=== PATIENT | female | born 1945 | race Caucasian/White ===

== ENCOUNTER 2017-10-21 13:39 | Inpatient (IN) | payer MEDICARE, OTHER ==
[2017-10-21] MEDS: SODIUM CHLORIDE 0.9% 1L BAG IV* (19:18)
[2017-10-21] MEDS: ONDANSETRON 4 MG INJ IV (19:24)
[2017-10-21] MEDS: IBUPROFEN 800 MG TAB PO (19:24)
[2017-10-21] MEDS: ACETAMINOPHEN 325 MG TAB PO (19:25)
[2017-10-21 19:27] LABS: ABNORMAL IP MESSAGE 1; MEAN CORPUSCULAR HEMOGLOBIN 22.9 pg (29.0-33.0); MEAN CORPUSCULAR HGB CONC 30.5 g/dl (32.0-37.0); MEAN CORPUSCULAR VOLUME 75.1 fl (82.0-101.0); MEAN PLATELET VOLUME 9.6 fl (7.4-10.4); PLATELET COUNT 221 10^3/UL (140-415); RED BLOOD COUNT 2.93 10^6/ul (4.20-5.40); RED CELL DISTRIBUTION WIDTH 17.7 % (11.5-14.5)
[2017-10-21 19:27] LABS: WHITE BLOOD COUNT 17.1 10^3/ul (4.8-10.8)
[2017-10-21 19:31] LABS: ADD MAN DIFF? YES; POSITIVE DIFF @See below
[2017-10-21 19:32] LABS: ADD UMIC YES; UR ASCORBIC ACID NEGATIVE (NEGATIVE); UR BACTERIA FEW /HPF (NONE SEEN); UR BILIRUBIN (Dip) NEGATIVE (NEGATIVE); UR BLOOD (Dip) 1+ mg/dL (NEGATIVE); UR CLARITY SLIGHTLY CLOUDY (CLEAR); UR COLOR YELLOW (YELLOW); UR GLUCOSE (Dip) NEGATIVE (NEGATIVE); UR KETONES (Dip) NEGATIVE (NEGATIVE); UR LEUKOCYTE ESTERASE (Dip) TRACE Leu/ul (NEGATIVE); UR NITRITE (Dip) POSITIVE (NEGATIVE); UR RBC 1 /HPF (0-5); UR SPECIFIC GRAVITY (Dip) 1.014 (1.003-1.030); UR SQUAMOUS EPITHELIAL CELL FEW /HPF (FEW); UR TOTAL PROTEIN (Dip) 2+ mg/dl (NEGATIVE); UR UROBILINOGEN (Dip) NEGATIVE (NEGATIVE); UR WBC 10 /HPF (0-5)
[2017-10-21 19:34] LABS: HEMOGLOBIN 6.7 g/dl (12.0-16.0)
[2017-10-21 19:45] LABS: ALANINE AMINOTRANSFERASE 26 IU/L (13-69); ALBUMIN 4.4 g/dl (3.3-4.9); ALBUMIN/GLOBULIN RATIO 1.12; ALKALINE PHOSPHATASE 103 IU/L (42-121); AMYLASE 88 U/L (11-123); ANION GAP 18 (8-16); ASPARTATE AMINO TRANSFERASE 36 IU/L (15-46); BLOOD UREA NITROGEN 17 mg/dl (7-20); CALCIUM 8.9 mg/dl (8.4-10.2); CARBON DIOXIDE 24 mmol/L (21-31); CHLORIDE 97 mmol/L (97-110); CREATININE 1.16 mg/dl (0.44-1.00); GLUCOSE 192 mg/dl (70-220); LIPASE 66 U/L (23-300); POTASSIUM 3.9 mmol/L (3.5-5.1); SODIUM 135 mmol/L (135-144); TOTAL PROTEIN 8.3 g/dl (6.1-8.1)
[2017-10-21 19:53] LABS: LACTIC ACID 2.4 mmol/L (0.5-2.0)
[2017-10-21 19:54] LABS: INR 1.02; PROTIME 13.5 Sec (11.9-14.9); PT RATIO 1.1
[2017-10-21 19:55] LABS: PARTIAL THROMBOPLASTIN TIME 31.7 Sec (25.0-35.0); TROPONIN-I 0.015 ng/ml (0.00-0.12)
[2017-10-21 20:03] LABS: ANISOCYTOSIS 1+ (0-0); HYPOCHROMASIA 1+ (0-0); LYMPHOCYTES #M 1.8 10^3/ul (0.8-2.9); LYMPHOCYTES % (M) 11 % (15-51); MICROCYTOSIS 1+ (0-0); MONOCYTE #M 0.3 10^3/ul (0.3-0.9); MONOCYTES % (M) 2 % (0-11); PLATELET MORPHOLOGY COMMENT @See below; SEGMENTED NEUTROPHILS (M) % 87 % (39-77); SMUDGE%M 2 % (0-0)
[2017-10-21] MEDS: CEFTRIAXONE 1 GM/50 ML (PMX) 50 ML IVPB (20:11)
[2017-10-21 20:22] LABS: HEMATOCRIT 19.5 % (37.0-47.0)
[2017-10-21 20:32] LABS: HEMOGLOBIN 5.9 g/dl (12.0-16.0)
[2017-10-21 20:33] LABS: PATH REVIEW? YES
[2017-10-21 20:42] LABS: LACTATE DEHYDROGENASE 406 IU/L (313-618)
[2017-10-21 20:49] LABS: IRON < 10 ug/dl (35-150)
[2017-10-21 20:51] LABS: TOTAL IRON BINDING CAPACITY 401 ug/dl (241-421)
[2017-10-21 21:24] LABS: IMMEDIATE SPIN CROSSMATCH 1 3
[2017-10-21] MEDS ORDERED: ONDANSETRON 4 MG INJ IV (21:30)
[2017-10-21] MEDS ORDERED: ACETAMINOPHEN 325 MG TAB PO (21:30)
[2017-10-22] MEDS ORDERED: morphine 2 MG INJ IV (05:00)
[2017-10-22] MEDS ORDERED: ACETAMINOPHEN 325 MG TAB PO (05:00)
[2017-10-22] MEDS ORDERED: ALBUTEROL/IPRATROPIUM (NEB) 3 ML AMP HHN (05:00)
[2017-10-22] MEDS ORDERED: ONDANSETRON 4 MG INJ IV (05:00)
[2017-10-22] MEDS ORDERED: NACL 0.9% 3 ML SYG IV (05:00)
[2017-10-22] MEDS ORDERED: METHOTREXATE 2.5 MG TAB PO (05:00)
[2017-10-22] MEDS: LEVOTHYROXINE 25 MCG TAB PO (06:45)
[2017-10-22] MEDS: PANTOPRAZOLE 40 MG INJ IV ×2 (06:45→18:49)
[2017-10-22 09:11] LABS: ADD MAN DIFF? NO
[2017-10-22 09:32] LABS: HEMOGLOBIN A1C 6.3 % (0-5.9)
[2017-10-22] MEDS: BENAZEPRIL 40 MG TAB PO (09:32)
[2017-10-22] MEDS: FOLIC ACID 1 MG TAB PO (09:32)
[2017-10-22] MEDS: CEFTRIAXONE 1 GM/50 ML (PMX) 50 ML IVPB ×2 (09:33→21:08)
[2017-10-22] MEDS: metFORMIN 500 MG TAB PO ×2 (09:33→18:49)
[2017-10-22] MEDS: AMLODIPINE 10 MG TAB PO (09:33)
[2017-10-22 09:41] LABS: WHITE BLOOD COUNT 12.6 10^3/ul (4.8-10.8)
[2017-10-22 09:41] LABS: BASOPHILS % 0.2 % (0.0-2.0); EOSINOPHILS % 0.1 % (0.0-7.0); HEMATOCRIT 23.6 % (37.0-47.0); HEMOGLOBIN 7.3 g/dl (12.0-16.0); LYMPHOCYTES # 1.7 10^3/ul (0.8-2.9); LYMPHOCYTES % 13.3 % (15.0-51.0); MEAN CORPUSCULAR HEMOGLOBIN 23.6 pg (29.0-33.0); MEAN CORPUSCULAR HGB CONC 30.9 g/dl (32.0-37.0); MEAN CORPUSCULAR VOLUME 76.4 fl (82.0-101.0); MONOCYTE # 0.8 10^3/ul (0.3-0.9); MONOCYTES % 6.5 % (0.0-11.0); NEUTROPHILS % 79.4 % (39.0-77.0); PLATELET COUNT 264 10^3/UL (140-415); RED BLOOD COUNT 3.09 10^6/ul (4.20-5.40); RED CELL DISTRIBUTION WIDTH 17.5 % (11.5-14.5)
[2017-10-22 09:49] LABS: ALANINE AMINOTRANSFERASE 23 IU/L (13-69); ALBUMIN 3.3 g/dl (3.3-4.9); ALBUMIN/GLOBULIN RATIO 0.89; ALKALINE PHOSPHATASE 83 IU/L (42-121); ANION GAP 13 (8-16); ASPARTATE AMINO TRANSFERASE 34 IU/L (15-46); BLOOD UREA NITROGEN 19 mg/dl (7-20); CALCIUM 8.7 mg/dl (8.4-10.2); CARBON DIOXIDE 24 mmol/L (21-31); CHLORIDE 107 mmol/L (97-110); CREATININE 0.95 mg/dl (0.44-1.00); GLUCOSE 98 mg/dl (70-220); POTASSIUM 4.1 mmol/L (3.5-5.1); SODIUM 140 mmol/L (135-144)
[2017-10-22] MEDS: BARIUM SULF 2% 450 ML BTL (BERRY SMOOTHIE) PO (10:38)
[2017-10-22] MEDS: SOD FERRIC GLUC COMPLX 125 MG in SOD CHLORIDE 0.9% 100 ML IVPB (10:49)
[2017-10-22 12:45] LABS: LACTIC ACID 1.1 mmol/L (0.5-2.0)
[2017-10-22 17:58] LABS: LACTIC ACID 0.8 mmol/L (0.5-2.0)
[2017-10-22] MEDS: ATORVASTATIN 20 MG TAB PO (21:07)
[2017-10-22 21:08] LABS: OCCULT BLOOD STOOL NEGATIVE (NEGATIVE)
[2017-10-23] MEDS: LEVOTHYROXINE 25 MCG TAB PO (05:44)
[2017-10-23] MEDS: PANTOPRAZOLE 40 MG INJ IV ×2 (05:44→18:43)
[2017-10-23] MEDS: metFORMIN 500 MG TAB PO (08:15)
[2017-10-23] MEDS: CEFTRIAXONE 1 GM/50 ML (PMX) 50 ML IVPB ×2 (08:15→21:34)
[2017-10-23] MEDS: FOLIC ACID 1 MG TAB PO (08:15)
[2017-10-23] MEDS: AMLODIPINE 10 MG TAB PO (08:18)
[2017-10-23] MEDS: BENAZEPRIL 40 MG TAB PO (08:18)
[2017-10-23 08:44] LABS: ADD MAN DIFF? NO
[2017-10-23 08:50] LABS: BASOPHILS % 0.4 % (0.0-2.0); EOSINOPHILS # 0.1 10^3/ul (0.0-0.5); EOSINOPHILS % 0.7 % (0.0-7.0); HEMATOCRIT 23.5 % (37.0-47.0); HEMOGLOBIN 7.2 g/dl (12.0-16.0); LYMPHOCYTES # 2.1 10^3/ul (0.8-2.9); LYMPHOCYTES % 24.7 % (15.0-51.0); MEAN CORPUSCULAR HEMOGLOBIN 23.3 pg (29.0-33.0); MEAN CORPUSCULAR HGB CONC 30.6 g/dl (32.0-37.0); MEAN CORPUSCULAR VOLUME 76.1 fl (82.0-101.0); MONOCYTES % 11.6 % (0.0-11.0); NEUTROPHIL # 5.2 10^3/ul (1.6-7.5); NEUTROPHILS % 61.8 % (39.0-77.0); PLATELET COUNT 262 10^3/UL (140-415); RED BLOOD COUNT 3.09 10^6/ul (4.20-5.40); RED CELL DISTRIBUTION WIDTH 17.9 % (11.5-14.5)
[2017-10-23 08:50] LABS: WHITE BLOOD COUNT 8.4 10^3/ul (4.8-10.8)
[2017-10-23 09:32] LABS: ANION GAP 14 (8-16); BLOOD UREA NITROGEN 16 mg/dl (7-20); CALCIUM 8.6 mg/dl (8.4-10.2); CARBON DIOXIDE 24 mmol/L (21-31); CHLORIDE 106 mmol/L (97-110); GLUCOSE 84 mg/dl (70-220); MAGNESIUM 2.1 mg/dl (1.7-2.5); PHOSPHORUS 3.6 mg/dl (2.5-4.9); POTASSIUM 4.6 mmol/L (3.5-5.1); SODIUM 139 mmol/L (135-144)
[2017-10-23] MEDS: SOD CHLORIDE 0.9% 100 ML (10:39)
[2017-10-23] MEDS: IOHEXOL 300MG/ML 150 ML BTL (10:39)
[2017-10-23] MEDS: SOD FERRIC GLUC COMPLX 125 MG in SOD CHLORIDE 0.9% 100 ML IVPB (11:25)
[2017-10-23 11:56] LABS: TRANSFERRIN 343 mg/dL (188-341)
[2017-10-23] MEDS: BISACODYL (EC) 5 MG TAB PO (16:14)
[2017-10-23] MEDS: MAGNESIUM CITRATE 300 ML BTL PO (16:14)
[2017-10-23] MEDS: POLYETHYLENE GLYCOL 3350 119 GM POWDER PO (18:43)
[2017-10-23] MEDS: ATORVASTATIN 20 MG TAB PO (21:33)
[2017-10-24] MEDS: LEVOTHYROXINE 25 MCG TAB PO (06:36)
[2017-10-24] MEDS: PANTOPRAZOLE 40 MG INJ IV ×2 (06:36→18:37)
[2017-10-24] MEDS: POLYETHYLENE GLYCOL 3350 119 GM POWDER PO (06:36)
[2017-10-24 07:22] LABS: ADD MAN DIFF? NO
[2017-10-24 07:30] LABS: WHITE BLOOD COUNT 6.7 10^3/ul (4.8-10.8)
[2017-10-24 07:30] LABS: BASOPHILS % 0.4 % (0.0-2.0); EOSINOPHILS # 0.1 10^3/ul (0.0-0.5); EOSINOPHILS % 0.9 % (0.0-7.0); HEMATOCRIT 26.6 % (37.0-47.0); LYMPHOCYTES # 2.5 10^3/ul (0.8-2.9); LYMPHOCYTES % 36.6 % (15.0-51.0); MEAN CORPUSCULAR HEMOGLOBIN 23.1 pg (29.0-33.0); MEAN CORPUSCULAR HGB CONC 30.1 g/dl (32.0-37.0); MEAN CORPUSCULAR VOLUME 76.7 fl (82.0-101.0); MEAN PLATELET VOLUME 8.9 fl (7.4-10.4); MONOCYTE # 0.9 10^3/ul (0.3-0.9); MONOCYTES % 12.6 % (0.0-11.0); NEUTROPHIL # 3.3 10^3/ul (1.6-7.5); NEUTROPHILS % 48.8 % (39.0-77.0); NUCLEATED RED BLOOD CELLS% 0.6 /100WBC (0.0-0.0); PLATELET COUNT 315 10^3/UL (140-415); RED BLOOD COUNT 3.47 10^6/ul (4.20-5.40)
[2017-10-24 07:53] LABS: ANION GAP 16 (8-16); BLOOD UREA NITROGEN 16 mg/dl (7-20); CARBON DIOXIDE 24 mmol/L (21-31); CHLORIDE 104 mmol/L (97-110); CREATININE 1.18 mg/dl (0.44-1.00); GLUCOSE 89 mg/dl (70-220); POTASSIUM 4.7 mmol/L (3.5-5.1); SODIUM 139 mmol/L (135-144)
[2017-10-24] MEDS: BISACODYL (EC) 5 MG TAB PO (08:11)
[2017-10-24] MEDS: FOLIC ACID 1 MG TAB PO (08:11)
[2017-10-24] MEDS: BENAZEPRIL 40 MG TAB PO (08:11)
[2017-10-24] MEDS: AMLODIPINE 10 MG TAB PO (08:12)
[2017-10-24] MEDS: CEFTRIAXONE 1 GM/50 ML (PMX) 50 ML IVPB ×2 (08:16→20:25)
[2017-10-24] MEDS: SOD FERRIC GLUC COMPLX 125 MG in SOD CHLORIDE 0.9% 100 ML IVPB (09:19)
[2017-10-24] MEDS: DEXTROSE 50% 50 ML SYRINGE (18:38)
[2017-10-24] MEDS: PROPOFOL 20 ML (18:38)
[2017-10-24] MEDS: ATORVASTATIN 20 MG TAB PO (20:24)
[2017-10-25] MEDS: PANTOPRAZOLE 40 MG INJ IV ×2 (06:01→17:12)
[2017-10-25] MEDS: LEVOTHYROXINE 25 MCG TAB PO (06:05)
[2017-10-25 06:32] LABS: ADD MAN DIFF? NO
[2017-10-25 06:43] LABS: BASOPHILS % 0.3 % (0.0-2.0); EOSINOPHILS # 0.1 10^3/ul (0.0-0.5); HEMATOCRIT 26.3 % (37.0-47.0); LYMPHOCYTES % 33.6 % (15.0-51.0); MEAN CORPUSCULAR HEMOGLOBIN 23.3 pg (29.0-33.0); MEAN CORPUSCULAR HGB CONC 30.4 g/dl (32.0-37.0); MEAN CORPUSCULAR VOLUME 76.5 fl (82.0-101.0); MEAN PLATELET VOLUME 8.7 fl (7.4-10.4); MONOCYTE # 0.7 10^3/ul (0.3-0.9); MONOCYTES % 11.6 % (0.0-11.0); NEUTROPHIL # 3.1 10^3/ul (1.6-7.5); NEUTROPHILS % 52.7 % (39.0-77.0); NUCLEATED RED BLOOD CELLS% 0.5 /100WBC (0.0-0.0); PLATELET COUNT 277 10^3/UL (140-415); RED BLOOD COUNT 3.44 10^6/ul (4.20-5.40)
[2017-10-25 07:29] LABS: ANION GAP 15 (8-16); BLOOD UREA NITROGEN 13 mg/dl (7-20); CALCIUM 8.6 mg/dl (8.4-10.2); CARBON DIOXIDE 23 mmol/L (21-31); CHLORIDE 105 mmol/L (97-110); CREATININE 1.02 mg/dl (0.44-1.00); GLUCOSE 86 mg/dl (70-220); POTASSIUM 4.4 mmol/L (3.5-5.1); SODIUM 139 mmol/L (135-144)
[2017-10-25] MEDS: FOLIC ACID 1 MG TAB PO (09:21)
[2017-10-25] MEDS: BENAZEPRIL 40 MG TAB PO (09:21)
[2017-10-25] MEDS: AMLODIPINE 10 MG TAB PO (09:22)
[2017-10-25] MEDS: CEFTRIAXONE 1 GM/50 ML (PMX) 50 ML IVPB (09:22)
[2017-10-28] MEDS ORDERED: METHOTREXATE 2.5 MG TAB PO (09:00)
== END 2017-10-25 17:37 | disposition home or self-care (01) | DRG 872 ==
LOC: MS4 21:03 → E/R 13:39
PROC: 0DB78ZX Excision of Stomach, Pylorus, Via Natural or Artificial Opening Endoscopic, Diagnostic (ICD-10-PCS; principal; 2017-10-24 15:30)
PROC: 0DB68ZX Excision of Stomach, Via Natural or Artificial Opening Endoscopic, Diagnostic (ICD-10-PCS; 2017-10-24 15:30)
PROC: 0DBM8ZX Excision of Descending Colon, Via Natural or Artificial Opening Endoscopic, Diagnostic (ICD-10-PCS; 2017-10-24 15:30)
PROC: 0DBN8ZX Excision of Sigmoid Colon, Via Natural or Artificial Opening Endoscopic, Diagnostic (ICD-10-PCS; 2017-10-24 15:30)
DX: A41.9 Sepsis, unspecified organism (principal); N17.9 Acute kidney failure, unspecified; N39.0 Urinary tract infection, site not specified; I48.2 Chronic atrial fibrillation; E11.9 Type 2 diabetes mellitus without complications; D50.9 Iron deficiency anemia, unspecified; I10 Essential (primary) hypertension; M06.9 Rheumatoid arthritis, unspecified; E03.9 Hypothyroidism, unspecified; E78.5 Hyperlipidemia, unspecified; K20.9 Esophagitis, unspecified; K29.70 Gastritis, unspecified, without bleeding; K29.80 Duodenitis without bleeding; K63.5 Polyp of colon; K64.8 Other hemorrhoids; E66.9 Obesity, unspecified; Z68.31 Body mass index [BMI] 31.0-31.9, adult; Z79.84 Long term (current) use of oral hypoglycemic drugs
CPT/HCPCS: 36430; 71045; 74177; 80048; 80053; 81001; 82150; 82270; 82728; 82962; 83036; 83540; 83605; 83615; 83690; 83735; 84100; 84443; 84466; 84484; 85014; 85018; 85025; 85610; 85730; 86850; 86900; 86901; 86920; 87040; 87070; 87086; 87400; 88305; 88312; 93005; 96374; 96375; 99291-25

== ENCOUNTER 2018-02-09 05:36 | Emergency (ER) | payer MEDICARE, OTHER | END 2018-02-09 06:43 | disposition home or self-care (01) | LOC: FTE 05:36 | DX: B35.4 Tinea corporis (principal); I10 Essential (primary) hypertension; E11.9 Type 2 diabetes mellitus without complications; E03.9 Hypothyroidism, unspecified; Z79.84 Long term (current) use of oral hypoglycemic drugs | CPT/HCPCS: 99283 ==

== ENCOUNTER 2018-06-20 10:09 | Inpatient (IN) | payer MEDICARE, OTHER ==
[2018-06-20] MEDS: IBUPROFEN 800 MG TAB PO (12:12)
[2018-06-20 13:28] LABS: TROPONIN-I < 0.012 ng/ml (0.000-0.120)
[2018-06-20 14:04] LABS: ADD MAN DIFF? NO
[2018-06-20 14:08] LABS: BASOPHIL # 0.1 10^3/ul (0.0-0.1); BASOPHILS % 0.7 % (0.0-2.0); EOSINOPHILS # 0.4 10^3/ul (0.0-0.5); EOSINOPHILS % 4.6 % (0.0-7.0); HEMATOCRIT 28.6 % (37.0-47.0); HEMOGLOBIN 8.5 g/dl (12.0-16.0); LYMPHOCYTES # 2.1 10^3/ul (0.8-2.9); LYMPHOCYTES % 23.8 % (15.0-51.0); MEAN CORPUSCULAR HEMOGLOBIN 28.3 pg (29.0-33.0); MEAN CORPUSCULAR HGB CONC 29.7 g/dl (32.0-37.0); MEAN CORPUSCULAR VOLUME 95.3 fl (82.0-101.0); MONOCYTE # 0.8 10^3/ul (0.3-0.9); MONOCYTES % 8.3 % (0.0-11.0); NEUTROPHIL # 5.6 10^3/ul (1.6-7.5); NEUTROPHILS % 62.2 % (39.0-77.0); PLATELET COUNT 245 10^3/UL (140-415); RED CELL DISTRIBUTION WIDTH 14.8 % (11.5-14.5)
[2018-06-20 14:12] LABS: MEAN PLATELET VOLUME 10.7 fl (7.4-10.4); POSITIVE DIFF @See below
[2018-06-20 14:14] LABS: ANION GAP 16 (8-16); BLOOD UREA NITROGEN 14 mg/dl (7-20); CALCIUM 9.4 mg/dl (8.4-10.2); CARBON DIOXIDE 22 mmol/L (21-31); CHLORIDE 109 mmol/L (97-110); GLUCOSE 90 mg/dl (70-220); POTASSIUM 5.2 mmol/L (3.5-5.1); SODIUM 142 mmol/L (135-144)
[2018-06-20 14:23] LABS: B-TYPE NATRIURETIC PEPTIDE 417 PG/ML (0-125)
[2018-06-20] MEDS ORDERED: ACETAMINOPHEN 325 MG TAB PO (14:30)
[2018-06-20] MEDS ORDERED: ONDANSETRON 4 MG INJ IV (14:30)
[2018-06-20] MEDS: FUROSEMIDE 40 MG INJ IV ×2 (15:00→17:17)
[2018-06-20] MEDS ORDERED: HYDROCODONE/APAP (5/325) TAB PO (16:00)
[2018-06-20] MEDS ORDERED: NACL 0.9% 3 ML SYG IV (16:00)
[2018-06-21] MEDS: LEVOTHYROXINE 25 MCG TAB PO (06:10)
[2018-06-21] MEDS: FUROSEMIDE 40 MG INJ IV (06:10)
[2018-06-21 06:11] LABS: ADD MAN DIFF? NO; HEMOGLOBIN 8.3 g/dl (12.0-16.0); RED BLOOD COUNT 2.89 10^6/ul (4.20-5.40)
[2018-06-21 06:11] LABS: WHITE BLOOD COUNT 7.4 10^3/ul (4.8-10.8)
[2018-06-21 06:12] LABS: BASOPHIL # 0.1 10^3/ul (0.0-0.1); BASOPHILS % 0.8 % (0.0-2.0); EOSINOPHILS # 0.5 10^3/ul (0.0-0.5); EOSINOPHILS % 7.1 % (0.0-7.0); LYMPHOCYTES # 1.6 10^3/ul (0.8-2.9); LYMPHOCYTES % 21.2 % (15.0-51.0); MEAN CORPUSCULAR HEMOGLOBIN 28.7 pg (29.0-33.0); MEAN CORPUSCULAR HGB CONC 30.7 g/dl (32.0-37.0); MEAN CORPUSCULAR VOLUME 93.4 fl (82.0-101.0); MEAN PLATELET VOLUME 9.2 fl (7.4-10.4); MONOCYTE # 0.8 10^3/ul (0.3-0.9); MONOCYTES % 10.3 % (0.0-11.0); NEUTROPHIL # 4.5 10^3/ul (1.6-7.5); NEUTROPHILS % 60.1 % (39.0-77.0); PLATELET COUNT 297 10^3/UL (140-415); RED CELL DISTRIBUTION WIDTH 15.1 % (11.5-14.5)
[2018-06-21 06:37] LABS: HEMOGLOBIN A1C 5.4 % (0-5.9)
[2018-06-21 06:55] LABS: ALANINE AMINOTRANSFERASE 22 IU/L (13-69); ALBUMIN 3.4 g/dl (3.3-4.9); ALBUMIN/GLOBULIN RATIO 0.87; ALKALINE PHOSPHATASE 105 IU/L (42-121); ANION GAP 13 (8-16); ASPARTATE AMINO TRANSFERASE 23 IU/L (15-46); BILIRUBIN,INDIRECT 0.3 mg/dl (0-1.1); BILIRUBIN,TOTAL 0.3 mg/dl (0.2-1.3); BLOOD UREA NITROGEN 19 mg/dl (7-20); CALCIUM 9.4 mg/dl (8.4-10.2); CARBON DIOXIDE 30 mmol/L (21-31); CHLORIDE 104 mmol/L (97-110); CREATININE 1.46 mg/dl (0.44-1.00); GLUCOSE 97 mg/dl (70-220); MAGNESIUM 2.2 mg/dl (1.7-2.5); POTASSIUM 4.6 mmol/L (3.5-5.1); SODIUM 142 mmol/L (135-144); TOTAL PROTEIN 7.3 g/dl (6.1-8.1)
[2018-06-21 06:56] LABS: IRON 40 ug/dl (35-150)
[2018-06-21 07:06] LABS: % IRON SATURATION 10 % SAT (22-52); TOTAL IRON BINDING CAPACITY 413 ug/dl (241-421)
[2018-06-21 07:58] LABS: FERRITIN 18.8 ng/ml (11.1-264.0)
[2018-06-21] MEDS: BENAZEPRIL 40 MG TAB PO (08:14)
[2018-06-21] MEDS: ENOXAPARIN 30 MG/0.3 ML SYG SC (08:23)
[2018-06-21] MEDS: SOD FERRIC GLUC COMPLX 125 MG in SOD CHLORIDE 0.9% 100 ML IVPB (16:47)
[2018-06-21 18:46] LABS: TROPONIN-I < 0.012 ng/ml (0.000-0.120)
[2018-06-22 01:21] LABS: TROPONIN-I < 0.012 ng/ml (0.000-0.120)
[2018-06-22 05:26] LABS: ADD MAN DIFF? NO
[2018-06-22 05:36] LABS: BASOPHIL # 0.1 10^3/ul (0.0-0.1); BASOPHILS % 0.7 % (0.0-2.0); EOSINOPHILS # 0.4 10^3/ul (0.0-0.5); EOSINOPHILS % 4.6 % (0.0-7.0); HEMATOCRIT 27.5 % (37.0-47.0); HEMOGLOBIN 8.5 g/dl (12.0-16.0); LYMPHOCYTES # 1.7 10^3/ul (0.8-2.9); LYMPHOCYTES % 18.5 % (15.0-51.0); MEAN CORPUSCULAR HEMOGLOBIN 28.6 pg (29.0-33.0); MEAN CORPUSCULAR HGB CONC 30.9 g/dl (32.0-37.0); MEAN CORPUSCULAR VOLUME 92.6 fl (82.0-101.0); MEAN PLATELET VOLUME 9.2 fl (7.4-10.4); MONOCYTE # 0.9 10^3/ul (0.3-0.9); MONOCYTES % 10.2 % (0.0-11.0); NEUTROPHIL # 5.9 10^3/ul (1.6-7.5); NEUTROPHILS % 65.8 % (39.0-77.0); PLATELET COUNT 304 10^3/UL (140-415); RED BLOOD COUNT 2.97 10^6/ul (4.20-5.40)
[2018-06-22 05:36] LABS: WHITE BLOOD COUNT 8.9 10^3/ul (4.8-10.8)
[2018-06-22 05:47] LABS: CHOL/HDL RATIO 2.2 RATIO; HDL CHOLESTEROL 60 mg/dl (33-92); LDL CHOLESTEROL,CALCULATED 54 mg/dl; TRIGLYCERIDES 97 mg/dl (0-149)
[2018-06-22 05:47] LABS: CHOLESTEROL 133 mg/dl (100-200)
[2018-06-22 05:48] LABS: ANION GAP 14 (8-16); BLOOD UREA NITROGEN 27 mg/dl (7-20); CALCIUM 9.2 mg/dl (8.4-10.2); CARBON DIOXIDE 29 mmol/L (21-31); CHLORIDE 102 mmol/L (97-110); CREATININE 1.52 mg/dl (0.44-1.00); GLUCOSE 103 mg/dl (70-220); POTASSIUM 4.9 mmol/L (3.5-5.1); SODIUM 140 mmol/L (135-144)
[2018-06-22 05:58] LABS: TROPONIN-I < 0.012 ng/ml (0.000-0.120)
[2018-06-22] MEDS: LEVOTHYROXINE 25 MCG TAB PO (06:10)
[2018-06-22] MEDS: FUROSEMIDE 20 MG TAB PO (08:56)
[2018-06-22] MEDS: ENOXAPARIN 30 MG/0.3 ML SYG SC (08:59)
[2018-06-22] MEDS: SOD FERRIC GLUC COMPLX 125 MG in SOD CHLORIDE 0.9% 100 ML IVPB (16:49)
[2018-06-22] MEDS: METOPROLOL 25 MG TAB PO (20:50)
[2018-06-23 05:25] LABS: ADD MAN DIFF? NO
[2018-06-23 05:34] LABS: BASOPHILS % 0.5 % (0.0-2.0); EOSINOPHILS # 0.5 10^3/ul (0.0-0.5); EOSINOPHILS % 6.3 % (0.0-7.0); HEMATOCRIT 28.4 % (37.0-47.0); HEMOGLOBIN 8.7 g/dl (12.0-16.0); LYMPHOCYTES # 1.8 10^3/ul (0.8-2.9); LYMPHOCYTES % 22.3 % (15.0-51.0); MEAN CORPUSCULAR HEMOGLOBIN 28.3 pg (29.0-33.0); MEAN CORPUSCULAR HGB CONC 30.6 g/dl (32.0-37.0); MEAN CORPUSCULAR VOLUME 92.5 fl (82.0-101.0); MONOCYTE # 0.8 10^3/ul (0.3-0.9); MONOCYTES % 10.6 % (0.0-11.0); NEUTROPHIL # 4.8 10^3/ul (1.6-7.5); NEUTROPHILS % 59.9 % (39.0-77.0); PLATELET COUNT 317 10^3/UL (140-415); RED BLOOD COUNT 3.07 10^6/ul (4.20-5.40); RED CELL DISTRIBUTION WIDTH 14.8 % (11.5-14.5)
[2018-06-23] MEDS: LEVOTHYROXINE 25 MCG TAB PO (06:37)
[2018-06-23 06:41] LABS: ANION GAP 12 (8-16); BLOOD UREA NITROGEN 36 mg/dl (7-20); CALCIUM 9.1 mg/dl (8.4-10.2); CARBON DIOXIDE 30 mmol/L (21-31); CHLORIDE 102 mmol/L (97-110); CREATININE 1.54 mg/dl (0.44-1.00); GLUCOSE 94 mg/dl (70-220); POTASSIUM 5.4 mmol/L (3.5-5.1); SODIUM 139 mmol/L (135-144)
[2018-06-23] MEDS: FUROSEMIDE 20 MG TAB PO (08:39)
[2018-06-23] MEDS: METOPROLOL 25 MG TAB PO ×2 (08:40→20:42)
[2018-06-23] MEDS: ENOXAPARIN 30 MG/0.3 ML SYG SC (08:54)
[2018-06-23] MEDS ORDERED: BARIUM SULFATE 135 ML (E-Z HD) PO (12:22)
[2018-06-23] MEDS: SOD FERRIC GLUC COMPLX 125 MG in SOD CHLORIDE 0.9% 100 ML IVPB (19:41)
[2018-06-24 06:31] LABS: ANION GAP 13 (8-16); BLOOD UREA NITROGEN 40 mg/dl (7-20); CALCIUM 9.3 mg/dl (8.4-10.2); CARBON DIOXIDE 29 mmol/L (21-31); CHLORIDE 103 mmol/L (97-110); CREATININE 1.57 mg/dl (0.44-1.00); GLUCOSE 97 mg/dl (70-220); SODIUM 140 mmol/L (135-144)
[2018-06-24] MEDS: LEVOTHYROXINE 25 MCG TAB PO (06:36)
[2018-06-24 07:23] LABS: FOLATE 14.8 ng/ml (2.8-20.0)
[2018-06-24] MEDS: FUROSEMIDE 20 MG TAB PO (08:10)
[2018-06-24] MEDS: METOPROLOL 25 MG TAB PO (08:10)
[2018-06-24] MEDS: ENOXAPARIN 30 MG/0.3 ML SYG SC (08:14)
[2018-06-24] MEDS: SOD CHLORIDE 0.9% 500 ML IV (13:06)
== END 2018-06-24 17:51 | disposition home or self-care (01) | DRG 291 ==
LOC: E/R 10:09 → 6WM 14:14
DX: I11.0 Hypertensive heart disease with heart failure (principal); J96.01 Acute respiratory failure with hypoxia; N17.9 Acute kidney failure, unspecified; I50.33 Acute on chronic diastolic (congestive) heart failure; M06.9 Rheumatoid arthritis, unspecified; E11.9 Type 2 diabetes mellitus without complications; I48.0 Paroxysmal atrial fibrillation; E03.9 Hypothyroidism, unspecified; D50.9 Iron deficiency anemia, unspecified; E66.9 Obesity, unspecified; Z68.27 Body mass index [BMI] 27.0-27.9, adult; E78.5 Hyperlipidemia, unspecified
CPT/HCPCS: 36415; 71045; 74250; 80048; 80053; 80061; 82607; 82728; 82746; 83036; 83540; 83735; 83880; 84443; 84484; 85025; 93005; 93306; 99285-25

== ENCOUNTER 2019-04-05 07:34 | Inpatient (IN) | payer MEDICARE, OTHER ==
[2019-04-05 08:23] LABS: ABNORMAL IP MESSAGE 1; HEMATOCRIT 22.5 % (37.0-47.0); MEAN CORPUSCULAR HEMOGLOBIN 27.8 pg (29.0-33.0); MEAN CORPUSCULAR HGB CONC 28.4 g/dl (32.0-37.0); MEAN CORPUSCULAR VOLUME 97.8 fl (82.0-101.0); MEAN PLATELET VOLUME 9.1 fl (7.4-10.4); PLATELET COUNT 278 10^3/UL (140-415); RED CELL DISTRIBUTION WIDTH 15.4 % (11.5-14.5)
[2019-04-05 08:23] LABS: WHITE BLOOD COUNT 7.7 10^3/ul (4.8-10.8)
[2019-04-05 08:25] LABS: POSITIVE DIFF @See below
[2019-04-05 08:29] LABS: HEMOGLOBIN 6.4 g/dl (12.0-16.0)
[2019-04-05 08:30] LABS: ADD MAN DIFF? YES
[2019-04-05 08:31] LABS: PATH REVIEW? YES
[2019-04-05 08:41] LABS: PARTIAL THROMBOPLASTIN TIME 29.4 Sec (23.0-35.0); PROTIME 13.3 Sec (11.9-14.9)
[2019-04-05 08:42] LABS: ALANINE AMINOTRANSFERASE 17 IU/L (13-69); ALBUMIN 3.7 g/dl (3.3-4.9); ALBUMIN/GLOBULIN RATIO 1.08; ALKALINE PHOSPHATASE 101 IU/L (42-121); ANION GAP 10 (5-13); ASPARTATE AMINO TRANSFERASE 25 IU/L (15-46); BILIRUBIN,INDIRECT 0.3 mg/dl (0-1.1); BILIRUBIN,TOTAL 0.3 mg/dl (0.2-1.3); BLOOD UREA NITROGEN 13 mg/dl (7-20); CALCIUM 9.1 mg/dl (8.4-10.2); CARBON DIOXIDE 26 mmol/L (21-31); CHLORIDE 104 mmol/L (97-110); CREATINE KINASE 105 IU/L (23-200); CREATININE 1.12 mg/dl (0.44-1.00); GLUCOSE 141 mg/dl (70-220); POTASSIUM 4.1 mmol/L (3.5-5.1); SODIUM 140 mmol/L (135-144); TOTAL PROTEIN 7.1 g/dl (6.1-8.1)
[2019-04-05] MEDS: FUROSEMIDE 40 MG INJ IV (08:52)
[2019-04-05 08:53] LABS: B-TYPE NATRIURETIC PEPTIDE 491 PG/ML (0-450); CK INDEX 1.9; CK-MB 1.96 ng/ml (0.0-2.4); TROPONIN-I < 0.012 ng/ml (0.000-0.120)
[2019-04-05 08:56] LABS: ADD UMIC NO; UR ASCORBIC ACID NEGATIVE (NEGATIVE); UR BILIRUBIN (Dip) NEGATIVE (NEGATIVE); UR BLOOD (Dip) NEGATIVE (NEGATIVE); UR CLARITY CLEAR (CLEAR); UR COLOR STRAW (YELLOW); UR GLUCOSE (Dip) NEGATIVE (NEGATIVE); UR KETONES (Dip) NEGATIVE (NEGATIVE); UR LEUKOCYTE ESTERASE (Dip) NEGATIVE Leu/ul (NEGATIVE); UR NITRITE (Dip) NEGATIVE (NEGATIVE); UR SPECIFIC GRAVITY (Dip) 1.006 (1.003-1.030); UR TOTAL PROTEIN (Dip) NEGATIVE (NEGATIVE); UR UROBILINOGEN (Dip) NEGATIVE (NEGATIVE)
[2019-04-05] MEDS: IPRATROPIUM (NEB) 0.5 MG/2.5 ML AMP INH (09:06)
[2019-04-05] MEDS: ALBUTEROL 0.5% (NEB) 2.5 MG/0.5 ML AMP INH (09:07)
[2019-04-05 09:10] LABS: ANISOCYTOSIS 1+ (0-0); BAND NEUTROPHILS #M 0.1 10^3/ul (0.0-0.6); BAND NEUTROPHILS % (M) 2 % (0-4); BASOPHILS % (M) 1 % (0-2); EOSINOPHILS % (M) 3 % (0-7); GIANT THROMBO% (M) 1 % (0-0); HYPOCHROMASIA 1+ (0-0); LYMPHOCYTES #M 1.6 10^3/ul (0.8-2.9); LYMPHOCYTES % (M) 21 % (15-51); MONOCYTE #M 0.3 10^3/ul (0.3-0.9); MONOCYTES % (M) 5 % (0-11); PLATELET ESTIMATE NORMAL; POLYCHROMASIA 3+ (0-0); SEG NEUT #M 5.2 10^3/ul (1.6-7.5); SEGMENTED NEUTROPHILS (M) % 68 % (39-77); SMUDGE%M 2 % (0-0)
[2019-04-05 09:21] LABS: LACTATE DEHYDROGENASE 530 IU/L (313-618)
[2019-04-05 09:45] LABS: OCCULT BLOOD STOOL POSITIVE (NEGATIVE)
[2019-04-05 09:57] LABS: FERRITIN 11.2 ng/ml (11.1-264.0)
[2019-04-05] MEDS ORDERED: ONDANSETRON 4 MG INJ IV ×2 (10:00→12:30)
[2019-04-05] MEDS ORDERED: ACETAMINOPHEN 325 MG TAB PO ×2 (10:00→12:30)
[2019-04-05 10:38] LABS: IRON 27 ug/dl (35-150)
[2019-04-05 10:48] LABS: % IRON SATURATION 7 % SAT (22-52); TOTAL IRON BINDING CAPACITY 396 ug/dl (241-421)
[2019-04-05] MEDS: SOD CHLORIDE 0.9% 250 ML IV* (12:16)
[2019-04-05] MEDS ORDERED: hydrALAzine 20 MG INJ IV (12:30)
[2019-04-05] MEDS ORDERED: NACL 0.9% 3 ML SYG IV (12:30)
[2019-04-05 15:20] LABS: CREATINE KINASE 114 IU/L (23-200)
[2019-04-05 15:30] LABS: B-TYPE NATRIURETIC PEPTIDE 609 PG/ML (0-450)
[2019-04-05 15:33] LABS: CK INDEX 1.7; CK-MB 1.94 ng/ml (0.0-2.4); TROPONIN-I < 0.012 ng/ml (0.000-0.120)
[2019-04-05] MEDS: BISACODYL (EC) 5 MG TAB PO (17:58)
[2019-04-05] MEDS: hydrALAzine 20 MG INJ IV (17:59)
[2019-04-05] MEDS: FUROSEMIDE 20 MG INJ IV (17:59)
[2019-04-05 18:03] LABS: IMMEDIATE SPIN CROSSMATCH 1 2
[2019-04-05] MEDS: SOD FERRIC GLUC COMPLX 125 MG in SOD CHLORIDE 0.9% 100 ML IVPB (18:09)
[2019-04-05] MEDS: MAGNESIUM CITRATE 300 ML BTL PO (18:57)
[2019-04-05] MEDS: POLYETHYLENE GLYCOL 3350 119 GM POWDER PO (19:30)
[2019-04-05] MEDS: PANTOPRAZOLE 40 MG INJ IV (20:56)
[2019-04-05] MEDS: ATORVASTATIN 20 MG TAB PO (20:57)
[2019-04-05 23:11] LABS: CREATINE KINASE 133 IU/L (23-200)
[2019-04-05 23:24] LABS: CK INDEX 1.6; CK-MB 2.09 ng/ml (0.0-2.4); TROPONIN-I < 0.012 ng/ml (0.000-0.120)
[2019-04-06 05:54] LABS: ADD MAN DIFF? NO
[2019-04-06] MEDS: POLYETHYLENE GLYCOL 3350 119 GM POWDER PO (05:54)
[2019-04-06 06:05] LABS: WHITE BLOOD COUNT 9.3 10^3/ul (4.8-10.8)
[2019-04-06 06:05] LABS: BASOPHIL # 0.1 10^3/ul (0.0-0.1); BASOPHILS % 0.5 % (0.0-2.0); EOSINOPHILS # 0.1 10^3/ul (0.0-0.5); EOSINOPHILS % 1.1 % (0.0-7.0); HEMATOCRIT 31.9 % (37.0-47.0); HEMOGLOBIN 9.8 g/dl (12.0-16.0); LYMPHOCYTES # 1.3 10^3/ul (0.8-2.9); MEAN CORPUSCULAR HEMOGLOBIN 28.3 pg (29.0-33.0); MEAN CORPUSCULAR HGB CONC 30.7 g/dl (32.0-37.0); MEAN CORPUSCULAR VOLUME 92.2 fl (82.0-101.0); MEAN PLATELET VOLUME 9.1 fl (7.4-10.4); MONOCYTE # 0.8 10^3/ul (0.3-0.9); NEUTROPHIL # 7.1 10^3/ul (1.6-7.5); NEUTROPHILS % 75.9 % (39.0-77.0); NUCLEATED RED BLOOD CELLS% 0.3 /100WBC (0.0-0.0); PLATELET COUNT 284 10^3/UL (140-415); RED BLOOD COUNT 3.46 10^6/ul (4.20-5.40); RED CELL DISTRIBUTION WIDTH 15.9 % (11.5-14.5)
[2019-04-06] MEDS: LEVOTHYROXINE 25 MCG TAB PO (06:14)
[2019-04-06 06:27] LABS: ALANINE AMINOTRANSFERASE 18 IU/L (13-69); ALBUMIN 3.7 g/dl (3.3-4.9); ALBUMIN/GLOBULIN RATIO 1.08; ALKALINE PHOSPHATASE 105 IU/L (42-121); ANION GAP 8 (5-13); ASPARTATE AMINO TRANSFERASE 27 IU/L (15-46); BLOOD UREA NITROGEN 15 mg/dl (7-20); CALCIUM 9.1 mg/dl (8.4-10.2); CARBON DIOXIDE 31 mmol/L (21-31); CHLORIDE 102 mmol/L (97-110); CREATININE 1.25 mg/dl (0.44-1.00); GLUCOSE 103 mg/dl (70-220); MAGNESIUM 2.3 mg/dl (1.7-2.5); PHOSPHORUS 5.3 mg/dl (2.5-4.9); POTASSIUM 3.4 mmol/L (3.5-5.1); SODIUM 141 mmol/L (135-144); TOTAL PROTEIN 7.1 g/dl (6.1-8.1)
[2019-04-06 08:02] LABS: HEMOGLOBIN A1C 5.1 % (0-5.9)
[2019-04-06 08:23] LABS: TROPONIN-I < 0.012 ng/ml (0.000-0.120)
[2019-04-06] MEDS: PANTOPRAZOLE 40 MG INJ IV ×2 (08:40→20:34)
[2019-04-06] MEDS: FUROSEMIDE 20 MG INJ IV (08:41)
[2019-04-06] MEDS: BISACODYL (EC) 5 MG TAB PO (08:42)
[2019-04-06] MEDS: SOD FERRIC GLUC COMPLX 125 MG in SOD CHLORIDE 0.9% 100 ML IVPB (12:50)
[2019-04-06 13:42] LABS: TRANSFERRIN 329 mg/dL (188-341)
[2019-04-06] MEDS: POTASSIUM CHLORIDE 100 ML IVPB (15:00)
[2019-04-06] MEDS: ATORVASTATIN 20 MG TAB PO (20:33)
[2019-04-07] MEDS: PROPOFOL 40 ML (06:00)
[2019-04-07] MEDS: LEVOTHYROXINE 25 MCG TAB PO (06:01)
[2019-04-07] MEDS: PANTOPRAZOLE 40 MG INJ IV (08:15)
[2019-04-07] MEDS: FUROSEMIDE 20 MG INJ IV (08:17)
[2019-04-07] MEDS: SOD FERRIC GLUC COMPLX 125 MG in SOD CHLORIDE 0.9% 100 ML IVPB (13:58)
== END 2019-04-07 19:20 | disposition home or self-care (01) | DRG 377 ==
LOC: E/R 07:34 → 6WM 09:37
PROVIDERS: Pediatrics
PROC: 0DBN8ZZ Excision of Sigmoid Colon, Via Natural or Artificial Opening Endoscopic (ICD-10-PCS; principal; 2019-04-06 17:24)
PROC: 0DB68ZX Excision of Stomach, Via Natural or Artificial Opening Endoscopic, Diagnostic (ICD-10-PCS; 2019-04-06 17:24)
PROC: 30233N1 Transfusion of Nonautologous Red Blood Cells into Peripheral Vein, Percutaneous Approach (ICD-10-PCS; 2019-04-06 17:24)
DX: K92.2 Gastrointestinal hemorrhage, unspecified (principal); I50.33 Acute on chronic diastolic (congestive) heart failure; N17.9 Acute kidney failure, unspecified; I13.0 Hypertensive heart and chronic kidney disease with heart failure and stage 1 through stage 4 chronic kidney disease, or unspecified chronic kidney disease; D62 Acute posthemorrhagic anemia; D12.5 Benign neoplasm of sigmoid colon; K29.70 Gastritis, unspecified, without bleeding; E03.9 Hypothyroidism, unspecified; N18.9 Chronic kidney disease, unspecified; K64.8 Other hemorrhoids; M06.9 Rheumatoid arthritis, unspecified; E78.5 Hyperlipidemia, unspecified; J44.9 Chronic obstructive pulmonary disease, unspecified; I48.0 Paroxysmal atrial fibrillation; E11.22 Type 2 diabetes mellitus with diabetic chronic kidney disease; K20.9 Esophagitis, unspecified; K44.9 Diaphragmatic hernia without obstruction or gangrene
CPT/HCPCS: 36430; 71045; 76775; 80053; 81003; 82270; 82378; 82550; 82553; 82728; 83036; 83540; 83615; 83735; 83880; 84100; 84443; 84466; 84484; 85025; 85610; 85730; 86850; 86900; 86901; 86920; 88305; 88312; 93005; 94664; 96374; 99285-25

== ENCOUNTER 2019-04-21 10:59 | Emergency (ER) | payer MEDICARE, OTHER ==
[2019-04-21 12:27] LABS: ADD MAN DIFF? NO
[2019-04-21 12:31] LABS: WHITE BLOOD COUNT 8.7 10^3/ul (4.8-10.8)
[2019-04-21 12:31] LABS: BASOPHIL # 0.1 10^3/ul (0.0-0.1); BASOPHILS % 0.7 % (0.0-2.0); EOSINOPHILS # 0.4 10^3/ul (0.0-0.5); EOSINOPHILS % 4.4 % (0.0-7.0); HEMATOCRIT 28.5 % (37.0-47.0); HEMOGLOBIN 8.8 g/dl (12.0-16.0); LYMPHOCYTES # 1.4 10^3/ul (0.8-2.9); LYMPHOCYTES % 16.4 % (15.0-51.0); MEAN CORPUSCULAR HEMOGLOBIN 28.9 pg (29.0-33.0); MEAN CORPUSCULAR HGB CONC 30.9 g/dl (32.0-37.0); MEAN CORPUSCULAR VOLUME 93.8 fl (82.0-101.0); MEAN PLATELET VOLUME 9.8 fl (7.4-10.4); MONOCYTE # 0.7 10^3/ul (0.3-0.9); MONOCYTES % 7.8 % (0.0-11.0); NEUTROPHIL # 6.1 10^3/ul (1.6-7.5); PLATELET COUNT 232 10^3/UL (140-415); RED BLOOD COUNT 3.04 10^6/ul (4.20-5.40)
[2019-04-21 12:32] LABS: POSITIVE DIFF @See below
[2019-04-21 12:49] LABS: ANION GAP 8 (5-13); BLOOD UREA NITROGEN 13 mg/dl (7-20); CALCIUM 9.1 mg/dl (8.4-10.2); CARBON DIOXIDE 26 mmol/L (21-31); CHLORIDE 108 mmol/L (97-110); GLUCOSE 93 mg/dl (70-220); POTASSIUM 4.7 mmol/L (3.5-5.1); SODIUM 142 mmol/L (135-144)
[2019-04-21 13:01] LABS: TROPONIN-I < 0.012 ng/ml (0.000-0.120)
== END 2019-04-21 13:24 | disposition home or self-care (01) ==
LOC: FTE 10:59
DX: J18.9 Pneumonia, unspecified organism (principal); I11.0 Hypertensive heart disease with heart failure; I50.9 Heart failure, unspecified
CPT/HCPCS: 71045; 80048; 84484; 85025; 93005; 99285-25

== ENCOUNTER 2019-05-21 13:28 | Inpatient (IN) | payer MEDICARE, OTHER ==
[2019-05-21] MEDS: FUROSEMIDE 40 MG INJ IV (16:01)
[2019-05-21] MEDS: NITROGLYCERIN (SL) 0.4 MG TAB SL (16:01)
[2019-05-21] MEDS: ASPIRIN 81 MG TAB PO (16:02)
[2019-05-21] MEDS: NITROGLYCERIN 2% 1 GM OINT PKT TD (16:02)
[2019-05-21 16:05] LABS: ADD MAN DIFF? NO
[2019-05-21 16:07] LABS: WHITE BLOOD COUNT 9.5 10^3/ul (4.8-10.8)
[2019-05-21 16:07] LABS: BASOPHIL # 0.1 10^3/ul (0.0-0.1); BASOPHILS % 0.5 % (0.0-2.0); EOSINOPHILS # 0.2 10^3/ul (0.0-0.5); EOSINOPHILS % 2.5 % (0.0-7.0); HEMATOCRIT 26.7 % (37.0-47.0); HEMOGLOBIN 7.9 g/dl (12.0-16.0); LYMPHOCYTES # 1.6 10^3/ul (0.8-2.9); LYMPHOCYTES % 16.6 % (15.0-51.0); MEAN CORPUSCULAR HEMOGLOBIN 28.5 pg (29.0-33.0); MEAN CORPUSCULAR HGB CONC 29.6 g/dl (32.0-37.0); MEAN CORPUSCULAR VOLUME 96.4 fl (82.0-101.0); MEAN PLATELET VOLUME 8.6 fl (7.4-10.4); MONOCYTE # 0.7 10^3/ul (0.3-0.9); MONOCYTES % 7.2 % (0.0-11.0); NEUTROPHIL # 6.9 10^3/ul (1.6-7.5); NEUTROPHILS % 72.8 % (39.0-77.0); PLATELET COUNT 270 10^3/UL (140-415); RED BLOOD COUNT 2.77 10^6/ul (4.20-5.40); RED CELL DISTRIBUTION WIDTH 15.8 % (11.5-14.5)
[2019-05-21 16:25] LABS: ANION GAP 8 (5-13); BLOOD UREA NITROGEN 13 mg/dl (7-20); CALCIUM 9.4 mg/dl (8.4-10.2); CARBON DIOXIDE 28 mmol/L (21-31); CHLORIDE 102 mmol/L (97-110); CREATININE 1.17 mg/dl (0.44-1.00); GLUCOSE 109 mg/dl (70-220); POTASSIUM 4.2 mmol/L (3.5-5.1); SODIUM 138 mmol/L (135-144)
[2019-05-21 16:35] LABS: TROPONIN-I < 0.012 ng/ml (0.000-0.120)
[2019-05-21] MEDS ORDERED: ACETAMINOPHEN 325 MG TAB PO ×2 (17:00→17:30)
[2019-05-21] MEDS ORDERED: ONDANSETRON 4 MG INJ IV ×2 (17:00→17:30)
[2019-05-21 17:29] LABS: B-TYPE NATRIURETIC PEPTIDE 609 PG/ML (0-450)
[2019-05-21] MEDS ORDERED: HYDROCODONE/APAP (5/325) TAB PO (17:30)
[2019-05-21] MEDS ORDERED: NACL 0.9% 3 ML SYG IV (17:30)
[2019-05-21] MEDS ORDERED: ALBUTEROL/IPRATROPIUM (NEB) 3 ML AMP HHN (17:30)
[2019-05-21] MEDS ORDERED: BISACODYL (EC) 5 MG TAB PO (17:30)
[2019-05-21] MEDS ORDERED: MAGNESIUM HYDROXIDE 30ML CUP PO (17:30)
[2019-05-21] MEDS ORDERED: hydrALAzine 20 MG INJ IV (17:30)
[2019-05-21] MEDS: PIPER-TAZO 3.375 GM IV (PMX) 100 ML IVPB ×2 (18:26→23:52)
[2019-05-21] MEDS: ALBUTEROL/IPRATROPIUM (NEB) 3 ML AMP HHN (20:00)
[2019-05-21] MEDS ORDERED: PANTOPRAZOLE (EC) 40 MG TAB PO (21:00)
[2019-05-21] MEDS ORDERED: FERROUS SULFATE (EC) 325 MG TAB PO (21:00)
[2019-05-21] MEDS ORDERED: ATORVASTATIN 20 MG TAB PO (21:00)
[2019-05-21 21:56] LABS: CREATINE KINASE 68 IU/L (23-200)
[2019-05-21 22:09] LABS: CK INDEX 1.7; CK-MB 1.17 ng/ml (0.0-2.4); TROPONIN-I < 0.012 ng/ml (0.000-0.120)
[2019-05-21] MEDS: FERROUS SULFATE (EC) 325 MG TAB PO (23:52)
[2019-05-21] MEDS: ATORVASTATIN 20 MG TAB PO (23:52)
[2019-05-22 03:32] LABS: ADD MAN DIFF? NO
[2019-05-22 03:42] LABS: HEMOGLOBIN A1C 5.1 % (0-5.9)
[2019-05-22 03:54] LABS: CREATINE KINASE 60 IU/L (23-200)
[2019-05-22 03:56] LABS: ALANINE AMINOTRANSFERASE 18 IU/L (13-69); ALBUMIN 3.6 g/dl (3.3-4.9); ALBUMIN/GLOBULIN RATIO 1.09; ALKALINE PHOSPHATASE 85 IU/L (42-121); ANION GAP 6 (5-13); ASPARTATE AMINO TRANSFERASE 26 IU/L (15-46); BILIRUBIN,INDIRECT 0.3 mg/dl (0-1.1); BILIRUBIN,TOTAL 0.3 mg/dl (0.2-1.3); BLOOD UREA NITROGEN 16 mg/dl (7-20); CALCIUM 8.9 mg/dl (8.4-10.2); CARBON DIOXIDE 30 mmol/L (21-31); CHLORIDE 103 mmol/L (97-110); CHOL/HDL RATIO 2.3 RATIO; CHOLESTEROL 119 mg/dl (100-200); CREATININE 1.31 mg/dl (0.44-1.00); GLUCOSE 87 mg/dl (70-220); HDL CHOLESTEROL 50 mg/dl (33-92); LDL CHOLESTEROL,CALCULATED 51 mg/dl; MAGNESIUM 2.1 mg/dl (1.7-2.5); SODIUM 139 mmol/L (135-144); TOTAL PROTEIN 6.9 g/dl (6.1-8.1); TRIGLYCERIDES 92 mg/dl (0-149)
[2019-05-22 03:58] LABS: POTASSIUM 3.9 mmol/L (3.5-5.1)
[2019-05-22 04:06] LABS: CK INDEX 1.5; TROPONIN-I < 0.012 ng/ml (0.000-0.120)
[2019-05-22 04:11] LABS: WHITE BLOOD COUNT 6.5 10^3/ul (4.8-10.8)
[2019-05-22 04:11] LABS: BASOPHIL # 0.1 10^3/ul (0.0-0.1); BASOPHILS % 0.8 % (0.0-2.0); EOSINOPHILS # 0.2 10^3/ul (0.0-0.5); EOSINOPHILS % 3.5 % (0.0-7.0); HEMATOCRIT 24.3 % (37.0-47.0); HEMOGLOBIN 7.3 g/dl (12.0-16.0); LYMPHOCYTES # 1.1 10^3/ul (0.8-2.9); LYMPHOCYTES % 16.4 % (15.0-51.0); MEAN CORPUSCULAR HEMOGLOBIN 28.4 pg (29.0-33.0); MEAN CORPUSCULAR VOLUME 94.6 fl (82.0-101.0); MONOCYTE # 0.6 10^3/ul (0.3-0.9); MONOCYTES % 9.2 % (0.0-11.0); NEUTROPHIL # 4.5 10^3/ul (1.6-7.5); NEUTROPHILS % 69.5 % (39.0-77.0); PLATELET COUNT 282 10^3/UL (140-415); RED BLOOD COUNT 2.57 10^6/ul (4.20-5.40); RED CELL DISTRIBUTION WIDTH 15.9 % (11.5-14.5)
[2019-05-22] MEDS: PIPER-TAZO 3.375 GM IV (PMX) 100 ML IVPB (05:24)
[2019-05-22 06:52] LABS: ADD MAN DIFF? NO
[2019-05-22 07:04] LABS: WHITE BLOOD COUNT 5.7 10^3/ul (4.8-10.8)
[2019-05-22 07:04] LABS: BASOPHILS % 0.7 % (0.0-2.0); EOSINOPHILS # 0.3 10^3/ul (0.0-0.5); EOSINOPHILS % 4.5 % (0.0-7.0); HEMATOCRIT 24.5 % (37.0-47.0); HEMOGLOBIN 7.2 g/dl (12.0-16.0); LYMPHOCYTES # 1.2 10^3/ul (0.8-2.9); LYMPHOCYTES % 20.7 % (15.0-51.0); MEAN CORPUSCULAR HEMOGLOBIN 27.9 pg (29.0-33.0); MEAN CORPUSCULAR HGB CONC 29.4 g/dl (32.0-37.0); MEAN PLATELET VOLUME 8.7 fl (7.4-10.4); MONOCYTE # 0.5 10^3/ul (0.3-0.9); MONOCYTES % 9.4 % (0.0-11.0); NEUTROPHIL # 3.7 10^3/ul (1.6-7.5); NEUTROPHILS % 64.4 % (39.0-77.0); PLATELET COUNT 285 10^3/UL (140-415); RED BLOOD COUNT 2.58 10^6/ul (4.20-5.40); RED CELL DISTRIBUTION WIDTH 15.9 % (11.5-14.5)
[2019-05-22 07:18] LABS: ALANINE AMINOTRANSFERASE 17 IU/L (13-69); ALBUMIN 3.6 g/dl (3.3-4.9); ALBUMIN/GLOBULIN RATIO 1.09; ALKALINE PHOSPHATASE 86 IU/L (42-121); ANION GAP 7 (5-13); ASPARTATE AMINO TRANSFERASE 21 IU/L (15-46); BILIRUBIN,INDIRECT 0.3 mg/dl (0-1.1); BILIRUBIN,TOTAL 0.3 mg/dl (0.2-1.3); BLOOD UREA NITROGEN 16 mg/dl (7-20); CALCIUM 8.8 mg/dl (8.4-10.2); CARBON DIOXIDE 30 mmol/L (21-31); CHLORIDE 103 mmol/L (97-110); CHOL/HDL RATIO 2.3 RATIO; CHOLESTEROL 115 mg/dl (100-200); CREATININE 1.31 mg/dl (0.44-1.00); GLUCOSE 87 mg/dl (70-220); HDL CHOLESTEROL 48 mg/dl (33-92); LDL CHOLESTEROL,CALCULATED 49 mg/dl; MAGNESIUM 2.1 mg/dl (1.7-2.5); POTASSIUM 3.8 mmol/L (3.5-5.1); SODIUM 140 mmol/L (135-144); TOTAL PROTEIN 6.9 g/dl (6.1-8.1); TRIGLYCERIDES 92 mg/dl (0-149)
[2019-05-22] MEDS: ALBUTEROL/IPRATROPIUM (NEB) 3 ML AMP HHN ×3 (08:19→19:29)
[2019-05-22] MEDS: LEVOTHYROXINE 25 MCG TAB PO (08:30)
[2019-05-22] MEDS: AMLODIPINE 5 MG TAB PO (08:31)
[2019-05-22] MEDS: FERROUS SULFATE (EC) 325 MG TAB PO ×3 (08:31→20:44)
[2019-05-22] MEDS: FOLIC ACID 1 MG TAB PO (08:31)
[2019-05-22] MEDS: FUROSEMIDE 20 MG TAB PO (12:18)
[2019-05-22] MEDS: ATORVASTATIN 20 MG TAB PO (20:44)
[2019-05-22] MEDS: PANTOPRAZOLE (EC) 40 MG TAB PO (22:50)
[2019-05-23] MEDS: LEVOTHYROXINE 25 MCG TAB PO (06:04)
[2019-05-23] MEDS: PANTOPRAZOLE (EC) 40 MG TAB PO ×2 (06:04→17:08)
[2019-05-23 06:33] LABS: ADD MAN DIFF? NO
[2019-05-23 06:43] LABS: BASOPHIL # 0.1 10^3/ul (0.0-0.1); BASOPHILS % 0.7 % (0.0-2.0); EOSINOPHILS # 0.3 10^3/ul (0.0-0.5); EOSINOPHILS % 4.1 % (0.0-7.0); HEMATOCRIT 26.4 % (37.0-47.0); HEMOGLOBIN 7.8 g/dl (12.0-16.0); LYMPHOCYTES # 1.3 10^3/ul (0.8-2.9); LYMPHOCYTES % 18.1 % (15.0-51.0); MEAN CORPUSCULAR HEMOGLOBIN 28.6 pg (29.0-33.0); MEAN CORPUSCULAR HGB CONC 29.5 g/dl (32.0-37.0); MEAN CORPUSCULAR VOLUME 96.7 fl (82.0-101.0); MEAN PLATELET VOLUME 8.9 fl (7.4-10.4); MONOCYTE # 0.7 10^3/ul (0.3-0.9); NEUTROPHIL # 4.9 10^3/ul (1.6-7.5); NEUTROPHILS % 67.7 % (39.0-77.0); NUCLEATED RED BLOOD CELLS% 0.3 /100WBC (0.0-0.0); PLATELET COUNT 314 10^3/UL (140-415); RED BLOOD COUNT 2.73 10^6/ul (4.20-5.40); RED CELL DISTRIBUTION WIDTH 15.9 % (11.5-14.5)
[2019-05-23 06:43] LABS: WHITE BLOOD COUNT 7.2 10^3/ul (4.8-10.8)
[2019-05-23 07:18] LABS: ANION GAP 5 (5-13); BLOOD UREA NITROGEN 20 mg/dl (7-20); CALCIUM 8.9 mg/dl (8.4-10.2); CARBON DIOXIDE 32 mmol/L (21-31); CHLORIDE 102 mmol/L (97-110); GLUCOSE 88 mg/dl (70-220); MAGNESIUM 2.2 mg/dl (1.7-2.5); PHOSPHORUS 5.3 mg/dl (2.5-4.9); POTASSIUM 4.1 mmol/L (3.5-5.1); SODIUM 139 mmol/L (135-144)
[2019-05-23] MEDS: FOLIC ACID 1 MG TAB PO (08:11)
[2019-05-23] MEDS: AMLODIPINE 5 MG TAB PO (08:12)
[2019-05-23] MEDS: FERROUS SULFATE (EC) 325 MG TAB PO ×3 (08:12→20:57)
[2019-05-23] MEDS: FUROSEMIDE 20 MG TAB PO (08:12)
[2019-05-23] MEDS: ALBUTEROL/IPRATROPIUM (NEB) 3 ML AMP HHN ×3 (08:52→19:46)
[2019-05-23] MEDS: BUDESONIDE (NEB) 0.5MG/2ML AMP HHN ×2 (12:30→19:46)
[2019-05-23] MEDS ORDERED: FUROSEMIDE 20 MG TAB PO (12:30)
[2019-05-23] MEDS: FUROSEMIDE 20 MG INJ IV (13:45)
[2019-05-23] MEDS: ATORVASTATIN 20 MG TAB PO (20:57)
[2019-05-24] MEDS: LEVOTHYROXINE 25 MCG TAB PO (06:09)
[2019-05-24] MEDS: PANTOPRAZOLE (EC) 40 MG TAB PO (06:09)
[2019-05-24 06:36] LABS: ADD MAN DIFF? NO
[2019-05-24 06:39] LABS: WHITE BLOOD COUNT 8.2 10^3/ul (4.8-10.8)
[2019-05-24 06:39] LABS: BASOPHIL # 0.1 10^3/ul (0.0-0.1); BASOPHILS % 0.9 % (0.0-2.0); EOSINOPHILS # 0.3 10^3/ul (0.0-0.5); EOSINOPHILS % 3.5 % (0.0-7.0); HEMATOCRIT 26.1 % (37.0-47.0); HEMOGLOBIN 7.7 g/dl (12.0-16.0); LYMPHOCYTES # 1.4 10^3/ul (0.8-2.9); LYMPHOCYTES % 16.9 % (15.0-51.0); MEAN CORPUSCULAR HEMOGLOBIN 28.6 pg (29.0-33.0); MEAN CORPUSCULAR HGB CONC 29.5 g/dl (32.0-37.0); MEAN PLATELET VOLUME 9.1 fl (7.4-10.4); MONOCYTE # 0.7 10^3/ul (0.3-0.9); MONOCYTES % 8.3 % (0.0-11.0); NEUTROPHIL # 5.8 10^3/ul (1.6-7.5); NEUTROPHILS % 70.2 % (39.0-77.0); PLATELET COUNT 293 10^3/UL (140-415); RED BLOOD COUNT 2.69 10^6/ul (4.20-5.40); RED CELL DISTRIBUTION WIDTH 16.2 % (11.5-14.5)
[2019-05-24 07:06] LABS: IRON 127 ug/dl (35-150)
[2019-05-24 07:10] LABS: ANION GAP 5 (5-13); BLOOD UREA NITROGEN 35 mg/dl (7-20); CALCIUM 8.8 mg/dl (8.4-10.2); CARBON DIOXIDE 31 mmol/L (21-31); CHLORIDE 101 mmol/L (97-110); GLUCOSE 96 mg/dl (70-220); MAGNESIUM 2.2 mg/dl (1.7-2.5); PHOSPHORUS 4.6 mg/dl (2.5-4.9); POTASSIUM 4.5 mmol/L (3.5-5.1); SODIUM 137 mmol/L (135-144)
[2019-05-24 07:16] LABS: % IRON SATURATION 38 % SAT (22-52); TOTAL IRON BINDING CAPACITY 338 ug/dl (241-421)
[2019-05-24 07:43] LABS: FERRITIN 25.4 ng/ml (11.1-264.0)
[2019-05-24] MEDS: ALBUTEROL/IPRATROPIUM (NEB) 3 ML AMP HHN ×2 (08:13→13:41)
[2019-05-24] MEDS: BUDESONIDE (NEB) 0.5MG/2ML AMP HHN (08:13)
[2019-05-24] MEDS: FOLIC ACID 1 MG TAB PO (08:43)
[2019-05-24] MEDS: AMLODIPINE 5 MG TAB PO (08:44)
[2019-05-24] MEDS: FUROSEMIDE 20 MG TAB PO (08:44)
[2019-05-24] MEDS: FERROUS SULFATE (EC) 325 MG TAB PO ×2 (08:44→12:27)
[2019-05-24 14:07] LABS: OCCULT BLOOD STOOL POSITIVE (NEGATIVE)
[2019-05-24] MEDS ORDERED: HARD FAT/PHENYLEPHRINE SUPP PR (16:00)
[2019-05-25] MEDS ORDERED: POLYETHYLENE GLYCOL 17 GM PACKET PO (09:00)
== END 2019-05-24 19:52 | disposition home or self-care (01) | DRG 291 ==
LOC: E/R 13:28 → TEL 16:58
DX: I13.0 Hypertensive heart and chronic kidney disease with heart failure and stage 1 through stage 4 chronic kidney disease, or unspecified chronic kidney disease (principal); I50.33 Acute on chronic diastolic (congestive) heart failure; N17.9 Acute kidney failure, unspecified; N18.9 Chronic kidney disease, unspecified; E78.5 Hyperlipidemia, unspecified; I48.0 Paroxysmal atrial fibrillation; M06.9 Rheumatoid arthritis, unspecified; E03.9 Hypothyroidism, unspecified; E11.22 Type 2 diabetes mellitus with diabetic chronic kidney disease; K64.8 Other hemorrhoids; D50.0 Iron deficiency anemia secondary to blood loss (chronic)
CPT/HCPCS: 36415; 71045; 71250; 80048; 80053; 80061; 82270; 82550; 82553; 82728; 83036; 83540; 83735; 83880; 84100; 84443; 84484; 85025; 86850; 86900; 86901; 93005; 93970; 94640; 94664; 96374; 99217; 99285-25